=== PATIENT | female | born 1985 | race Caucasian/White ===

== ENCOUNTER 2021-01-13 06:27 | Emergency (ER) | payer OTHER, SELFPAY ==
--- NOTE | ~2021-01-13 | US_ITS ---
EXAMINATION: US pelvic complete w TV DATE: 01/13/2021 07:59 INDICATION: Right-sided pelvic pain TECHNIQUE: Multiple transabdominal and endovaginal sonographic images of the pelvis were obtained. COMPARISON: None. FINDINGS: The uterus measures 7.7 x 4.4 x 4.3 cm. The endometrial complex measures 8 mm. The right ov sanna measures 2.0 x 2.0 x 1.9 cm. The left ovary measures 2.6 x 2.3 x 1.6 cm. There is normal vascular flow in the ovaries. There is no free fluid in the pelvis. IMPRESSION: 1. No sonographic correlate for the patient's symptoms. Reviewed, dictated and finalized at location A.
--- NOTE | ~2021-01-13 | CT_ITS ---
EXAMINATION: CT abdomen pelvis w con INDICATION: Right flank pain and vomiting, history of lymphoma TECHNIQUE: Computed tomographic images of the abdomen and pelvis were obtained after the administrati on of 100 cc of Omnipaque 350 intravenous contrast. The dose-length product (DLP) was 235.32 mGy-cm. Automated exposure control and iterative reconstruction technique were employed. COMPARISON: CT from today and 01/18/2017 FINDINGS: The lung bases are clear. The heart size is normal. Cysts and hemangiomas of the liver dennis ure up to 1.7 cm. The spleen, pancreas, gallbladder, and adrenal glands are unremarkable. The left ki dney is unremarkable. Again noted is enlargement of the right kidney with surrounding right perinephr ic fat stranding. There is urothelial enhancement of the kidney and proximal ureter. No pathologicall y enlarged abdominal or pelvic lymph nodes are identified. There is no free intraperitoneal gas or ev idence of bowel obstruction. IMPRESSION: 1. Mild enlargement of the right kidney with right perinephric fat stranding and urothelial enhanceme nt. Findings remain concerning for urinary tract infection. Lymphoma would be considered less likely even in consideration of patient history. Reviewed, dictated and finalized at location A. IMPRESSION: 1. Mild enlargement of the right kidney with right perinephric fat stranding an d urothelial enhancement. Findings remain concerning for urinary tract infectio n. Lymphoma would be considered less likely even in consideration of patient hi story.
--- NOTE | ~2021-01-13 | CT_ITS ---
EXAMINATION: CT abdomen pelvis wo con DATE: 01/13/2021 09:05 INDICATION: Right flank pain TECHNIQUE: Computed tomography (CT) of the abdomen and pelvis was performed without intravenous contr ast. The dose-length product (DLP) was 236.52 mGy-cm. Automated exposure control and iterative recons truction technique were employed. COMPARISON: 01/18/2017 FINDINGS: The lung bases are clear. The heart size is normal. Hypoattenuating lesions of the liver me asuring up to 1.5 cm have been previously demonstrated to reflect cysts and hemangiomas. The spleen, pancreas, gallbladder, and adrenal glands are normal. The left kidney is unremarkable. There is enlar gement of the right kidney with surrounding right perinephric fat stranding. No urolithiasis is ident ified. No pathologically enlarged abdominal or pelvic lymph nodes are identified. There is no free in traperitoneal gas or evidence of bowel obstruction. IMPRESSION: 1. Enlargement of the right kidney with surrounding perinephric fat stranding suggestive of pyeloneph ritis. No urolithiasis identified. Reviewed, dictated and finalized at location A. IMPRESSION: 1. Enlargement of the right kidney with surrounding perinephric fat stranding s uggestive of pyelonephritis. No urolithiasis identified.
--- NOTE | ~2021-01-13 | XR_ITS ---
EXAMINATION: XR abdomen/kub 1V INDICATION: Right flank pain TECHNIQUE: Supine views of the abdomen were obtained on 2 radiographs. COMPARISON: CT from today FINDINGS: There are phleboliths of the left pelvis. No urolithiasis is identified. The bowel gas terry jose is normal. The visualized lung bases are clear. IMPRESSION: 1. No urolithiasis identified. Reviewed, dictated and finalized at location A.
[2021-01-13 06:30] VITALS: BP 147/102; PULSE 121; RESP 28; TEMP 36.6; O2SAT 100
[2021-01-13 07:19] LABS: Basophils Percent Auto 0.4 % (0.2-1.2); Eosinophils Absolute Auto 0.2 K/mm3 (0-0.3); Eosinophils Percent Auto 1.9 % (0-4.4); Hemoglobin 14.2 g/dL (12.0-15.0); Immature Granulocyte Absolute 0.06 K/mm3 (0.00-0.031); Immature Granulocyte Percent A 0.6 % (0-0.5); Lymphocytes Absolute Auto 2.25 K/mm3 (0.9-3.2); Lymphocytes Percent Auto 22.8 % (18.3-44.2); Mean Corpuscular HGB Conc 32.3 g/dl (32-36); Mean Corpuscular Hemoglobin 30.3 pg (26-34); Mean Platelet Volume 10.1 fl (7.4-10.4); Monocytes Absolute Auto 0.7 K/mm3 (0.1-0.6); Monocytes Percent Auto 7.3 % (2.6-8.5); Neutrophils Absolute Auto 6.6 K/mm3 (1.3-6.7); Platelet Count Result 217 k/mm3 (150-375); Red Blood Count 4.68 M/mm3 (4.2-5.4); Red Cell Distribution Width 11.9 % (11.5-14.5); White Blood Count 9.9 K/mm3 (4.5-10.0)
[2021-01-13] MEDS: ONDANSETRON INJ 4 MG/2 ML VIAL IV PUSH (07:20)
--- NOTE | 2021-01-13 07:20 | ED.ABDPAIN ---
HPI - Abdominal Pain General Chief Complaint: Abdominal Pain Stated Complaint: right flank pain/right abd pain Time Seen by Provider: 01/13/21 07:01 Source: patient, RN notes reviewed and old records reviewed Mode of arrival: ambulatory Limitations: no limitations History of Present Illness HPI narrative: This is a 35 year old female with history of lymphoma who presents for evaluation of right flank pain. She states she was awaken this morning at 4 am with right lower back pain that radiates to her right lower abdomen. Her pain has been constant , and it is associated with nausea and vomiting. She denies fever, chills, urinary complaints or vaginal bleeding. She has not been able to take anything for pain. Her pain is worse with standing straight. She is due to start her menstrual cycle today. She reports history ovarian cyst but she states this pain is much worse. Related Data Allergies Allergy/AdvReac Type Severity Reaction Status Date / Time azithromycin Allergy Unknown Skin Verified 11/12/17 13:13 irritation Macrolide Antibiotics Allergy Unknown Verified 05/20/18 13:37 Review of Systems Review of Systems: All systems reviewed & are unremarkable except as noted in HPI and below PMFSH Past Medical History Medical History (Updated 01/13/21 @ 12:40 by Evy Montoya MD) Non-Hodgkin lymphoma Ovarian cyst Social History Social History Smoking status: Never smoker Second hand tobacco smoke exposure: No Alcohol intake: current Exam Const: General: alert Orientation/consciousness: patient oriented x3 Other: in position moaning in pain Eyes: EOM: EOMs intact bilaterally Resp: Effort & Inspection: normal respiratory effort and no retractions Auscultation: clear to auscultation bilaterally Cardio: Rate: regular rate Rhythm: regular rhythm Heart sounds: no murmurs GI: GI Palp: Yes Soft to palpation, Yes Tenderness to palpation present (GI) (right lower abdomen), No Guarding due to palpation present (GI) and No Rigid due to palpation Auscultation: normal bowel sounds : General: Yes no CVA tenderness Neuro: General: patient oriented x3, moves all extremities and CN's II-XI intact bilaterally Psych: Mental Status: mental status grossly normal Affect: normal affect Course Reevaluation(s) Reevaluation #1: I spoke with radiologist , Dr. Manzano, about CT . He agrees it's reasonable to perform CT with IV contrast to evaluated enlarged kidney given that no infection in urine. I have spoken with patient and she is agreeable to repeat CT Date: 01/13/21 Time: 10:32 Reevaluation #2: I discussed evaluation and discharge disposition and treatment. She will be given dose of antibiotics and she is to follow up with PCP Date: 01/13/21 Time: 12:38 Vital Signs Vital signs: Vital Signs Temperature 97.9 F 01/13/21 06:30 Pulse Rate 121 H 01/13/21 06:30 Respiratory Rate 28 H 01/13/21 06:30 Blood Pressure 147/102 H 01/13/21 06:30 Pulse Oximetry 100 01/13/21 06:30 Temperature 97.9 F 01/13/21 06:30 Pulse Rate 72 01/13/21 13:04 Respiratory Rate 16 01/13/21 13:04 Blood Pressure 118/77 01/13/21 13:04 Pulse Oximetry 100 01/13/21 13:04 MDM - Abdominal Pain Medical Records Attestation: I reviewed the patient's medical records. Lab Data Attestation: I reviewed the patient's lab results. Result diagrams: 01/13/21 06:56 01/13/21 08:00 Labs: Lab Results 01/13/21 01/13/21 01/13/21 Range/Units 06:56 08:00 08:00 WBC 9.9 (4.5-10.0) K/mm3 RBC 4.68 (4.2-5.4) M/mm3 Hgb 14.2 (12.0-15.0) g/dL Hct 44.0 (37.0-47.0) % MCV 94.0 (80-100) fl MCH 30.3 (26-34) pg MCHC 32.3 (32-36) g/dl RDW 11.9 (11.5-14.5) % Plt Count 217 (150-375) k/mm3 MPV 10.1 (7.4-10.4) fl Immature Gran % (Auto) 0.6 H (0-0.5) % Neut % (Auto) 67.0 (45.5-73.1) % Lymph % (Auto) 22.8 (18.3-44.2) % Mitchell
[2021-01-13] MEDS: HYDROmorphone HCL INJ (*CRX) 1 MG/ML SYR IV PUSH (07:21)
[2021-01-13] MEDS: SODIUM CHLORIDE 0.9% IV 1,000 ML 999 ML IV CONT (07:22)
[2021-01-13 08:16] LABS: Add Urine Microscopic? YES; Appearance Urine Clear (Clear); Bacteria Urine Trace /hpf; Bilirubin Urine Negative (Negative); Blood Urine 2+ (Negative); Color Urine Straw (Yellow); Glucose Urine UA Negative (Negative); Ketones Urine Trace mg/dL (Negative); Leukocyte Esterase Ur Negative LEU/UL (Negative); Mucus Urine Rare /lpf; Nitrate Urine Negative (Negative); Protein Urine Negative (Negative); RBC Urine 21-50 /hpf (0-2); Specific Grav Ur 1.015 (1.001-1.035); Squamous Epithelial Cell Urine Occasional /hpf (Few); Urobilinogen Urine Negative mg/dL (<2.0); WBC Urine 0-3 /hpf
[2021-01-13 08:18] LABS: Alanine Aminotransferase 13 U/L (4-35); Alkaline Phosphatase 59 U/L (38-126); Anion Gap 8 mmol/L (8-16); Aspartate Amino Transferase 23 U/L (14-36); Bilirubin,Total 0.5 mg/dL (0.2-1.3); Blood Urea Nitrogen 14 mg/dL (7-17); Calcium 8.6 mg/dL (8.4-10.2); Carbon Dioxide 22 mmol/L (22-30); Chloride 106 mmol/L (98-107); Estimated CRCL calculation 66 ml/min; Estimated Glomerular Filt Rate > 60; Glucose 103 mg/dL (65-110); Lipase 77 U/L (23-300); Potassium 3.4 mmol/L (3.4-5.0); Sodium 136 mmol/L (137-145)
[2021-01-13 09:44] VITALS: BP 121/67; PULSE 81; RESP 17; O2SAT 97
[2021-01-13 13:04] VITALS: BP 118/77; PULSE 72; RESP 16; O2SAT 100
== END 2021-01-13 13:06 | disposition home or self-care (01) ==
PROVIDERS: Emergency Medicine; Emergency Provider General Practice; PCP Family Medicine
DX: N12 Tubulo-interstitial nephritis, not specified as acute or chronic (principal); Z85.72 Personal history of non-Hodgkin lymphomas
CPT/HCPCS: 36415; 74018; 74176; 74177; 74178; 76830; 76856; 80053; 81001; 81025; 83690; 85025; 96361; 96374; 96375; 99284; J0696; J1170; J2405; J7030; Q9967

== ENCOUNTER 2022-02-27 09:41 | Emergency (ER) | payer OTHER, SELFPAY ==
--- NOTE | 2022-02-27 09:44 | ED.URI ---
HPI - URI/Sore Throat General Chief Complaint: Upper Respiratory Infection Stated Complaint: + covid/sore throat/earache Time Seen by Provider: 02/27/22 09:44 Source: patient and RN notes reviewed History of Present Illness HPI Narrative: Patient is a 37-year-old female who presents the urgent care with complaints of earache and sore throat. Patient states that she was symptomatic and tested positive on Friday for COVID after her has been positive since Friday. Patient has been taking Tylenol and ibuprofen. States that her symptoms have been mostly mild with the exception of the severe sore throat that is developed over the last couple days. Patient has not had any recent fevers, nausea or vomiting. Patient denies any cough or shortness of breath. Patient states her main concern is possible strep throat. No other acute complaints. No acute distress noted. Patient aware of the plan of care. Some parts of this dictation were generated by voice recognition software and may contain typographical and/or grammatical inaccuracies. Related Data Allergies Allergy/AdvReac Type Severity Reaction Status Date / Time azithromycin Allergy Unknown Skin Verified 01/22/22 09:20 irritation Macrolide Antibiotics Allergy Unknown Unknown Verified 01/22/22 09:20 Review of Systems Review of Systems: CONSTITUTIONAL: Denies fever, chills, or sweats. EYES: Denies visual changes, redness, or discharge. ENT: Reports bilateral otalgia and sore throat CARDIOVASCULAR: Denies chest pain, palpitations, or edema. RESPIRATORY: Denies cough or dyspnea. GASTROINTESTINAL: Denies abdominal pain, nausea, vomiting, or diarrhea. GENITOURINARY: Denies dysuria or hematuria. SKIN: Denies rash or itching. MUSCULOSKELETAL: Denies back pain, joint pain, or myalgia. NEUROLOGIC: Denies headache, numbness, or weakness. All other systems reviewed are negative, except as documented in HPI. 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 There is no relevant family history pertinent to the patient complaint. Exam Narrative: GENERAL: This is a well-nourished, well-developed patient, in no apparent distress. HEAD: normocephalic, atraumatic. EYES: PERRL. Sclera clear/white. Vision is grossly intact. EARS: External ears normal, auditory canals clear and without drainage, TMs normal without perforation. Hearing grossly intact. NOSE: External nose normal with no obvious nasal discharge, nares without redness, no rhinorrhea. THROAT: Mucous membranes moist. Mild erythema to the posterior pharynx with moderate postnasal drainage NECK: Neck supple, non-tender without lymphadenopathy CARDIOVASCULAR: Regular rate and rhythm without murmurs, gallops, or rubs. RESPIRATORY: Clear to auscultation. Breath sounds equal bilaterally. No wheezes, rales, or rhonchi. SKIN: warm, intact with no suspicious lesions or rash, good texture and turgor. NEURO: awake, alert, and oriented to person, place and time. Th
[2022-02-27 09:55] VITALS: BP 135/86; PULSE 99; RESP 16; TEMP 37.2; O2SAT 100
== END 2022-02-27 10:29 | disposition home or self-care (01) ==
PROVIDERS: Emergency Provider Nurse Practitioner Family; PCP Family Medicine
DX: U07.1 COVID-19 (principal); Z79.82 Long term (current) use of aspirin; Z85.72 Personal history of non-Hodgkin lymphomas; Z92.21 Personal history of antineoplastic chemotherapy
CPT/HCPCS: 87081; 87880; 99213; G0463

== ENCOUNTER 2025-05-06 00:40 | Day surgery (SDC) | payer OTHER, SELFPAY ==
--- NOTE | 2025-05-04 16:20 | SUR.PREOP ---
[facility] has started construction of its new state of the art ER which will open Spring 2026. With this, we anticipate parking may be a challenge for some our surgical patients and families. Parking spaces are limited but are available for all Surgical, obstetrics, and ER patients sharing this lot. If you arrive and find you are having a hard time finding a parking space, please note that we understand the challenges, please drive around the hospital and park near Hospital Entrance 1. When you enter this entrance, you can ask a volunteer to direct or take you back to the surgical waiting area to check in. We appreciate everyone?s understanding of these expected challenges while we build for your future. Report to the Outpatient Waiting Room, entrance under the green pavilion located off [address], at time _6AM_ on date _05/06/25_. Planned Procedure Time: _730AM_.? Time changes happen often and if your time is changed the preop area will call you the afternoon before. - You and your visitor will be asked to self-screen and do not enter if you have any COVID symptoms. Please call surgeon if you need to reschedule. - A mask is optional within the hospital at this time. Patients may have clear liquids (water, carbonated beverages, clear teas, apple juice) until 3 hours prior to surgery with a maximum of 20 ounces. - No food from midnight until time of surgery and no smoking, or chewing tobacco (or any form of nicotine). No chewing gum, candy or mints. Take only the following medications with a SIP of water on the morning of surgery: _none__ DO NOT STOP ANY OF YOUR OTHER PRESCRIPTION MEDICATIONS PRIOR TO SURGERY EXCEPT THE FOLLOWING Hold all vitamins and supplements for 3 days per anesthesiologist. Medications to discontinue per physician _follow up with surgeon regarding aspirin regimen_ Date to take last dose__n/a_ Please no make-up, nail kosovan, hairspray, perfume, deodorant, or body powder the day of surgery.? No jewelry (including any body piercings) or valuables the day of surgery, leave them at home.? Please take a shower or bath the night before, or the morning of, surgery with an antibacterial soap.? Wear comfortable, loose fitting clothing.? - Jewelry must be removed prior to entering the operating room.? Rings and piercings that are not removed may be cut off. - The hospital will not accept responsibility for valuables.? - Please leave all valuables, including medications, at home the day of surgery. If you are going home after surgery, a licensed otr refrigerated cdl truck driver must drive you home.? - NO public transportation without another adult if you receive anesthesia. - We recommend that an adult stay with you for 24 hours following discharge. - We also recommend that you do not drive, make important decision, drink alcoholic beverages, or take any drugs that were not prescribed by your health care provider for at least 24 hours after your discharge time. Follow any additional instructions given to you from your surgeon. Telephone instructions given to __Jelly____and asked if any additional questions and then verbalized understanding. Patient advised to call surgeon office or pre surgery nurse liaison [phone] if any additional questions.
[2025-05-04 16:37] VITALS: BMI 18.9
--- NOTE | 2025-05-05 16:36 | P.HP_ITS ---
H&P: HPI History of Present Illness Date/Time: 05/05/25 16:36 Chief Complaint: missed Narrative: 40-year-old female who presents for suction D&C for management of spontaneous missed . Ultrasound last week showed the gestational sac size was small compared to last menstrual cycle. As she was asymptomatic they opted for repeat scan which was performed a week later. Ultrasound showed empty ge stational sac with no pole or yolk sac, no interval change. 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 Non-Hodgkin lymphoma 2014 chemotherapy Ovarian cyst Surgical History Surgical History History of biopsy (12/21/12) neck biopsy Social History Social History (Updated 04/11/25 @ 15:18 by OUSMANE Camarena) Smoking status: Never smoker Second hand tobacco smoke exposure: No Alcohol intake: current Drinks per week: 1 Substance use: never Substance use type: does not use Do You Feel Safe in your Home?: Yes Lack of Transportation: No Lack of Food: Never True Current Housing: Decline to Answer Concerned About Future Housing: Decline to Answer Difficulty Paying Gas/Electric Bills: Decline to Answer Difficulty Paying for Meds: Decline to Answer Currently Unemployed: Decline to Answer Education: Decline to Answer Difficulty w/ Childcare or Family Care: Decline to Answer Living arrangements: with family Additional living arrangements comments: Occupation/Education: occupation 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 [employer] Gender identity (if verbalized by the patient): Female Sexual Orientation (if Verbalized by the Patient): Straight or Heterosexual Spiritual care concerns: No Meds Home Medications and Allergies Home Medications ?Medication ?Instructions ?Recorded ?Confirmed ?Type aspirin 81 mg tablet,delayed 81 mg PO DAILY 02/25/23 1 07/04/24 History release (Adult Low Dose Aspirin) progesterone micronized 200 mg 200 mg PO QHS 30 days # 30 caps 10/13/25 11/05/25 Rx capsule (Prometrium) Allergies Allergy/AdvReac Type Severity Reaction Status Date / Time azithromycin Allergy Unknown Skin Verified 05/04/25 16:22 irritation Exam Const: General: comfortable and no acute distress Resp: Effort & Inspection: normal respiratory effort Auscultation: clear to auscultation bilaterally Cardio: Rate: regular rate Rhythm: regular rhythm GI: Inspection: non-distended GI Palp: Yes Soft to palpation, No Tenderness to palpation present (GI) and No Guarding due to palpation present (GI) Auscultation: normal bowel sounds : External Female Exam: normal external appearance Speculum Exam - Vagina: normal appearance of the vagina Speculum Exam - Cervix: normal appearance of the cervix, Cervical os closed, Abnormal cervical discharge present and nontender Bimanual exam- vagina & uterus: normal bimanual exam, No Cervical tenderness present and non-tender Bimanual Exam- Adnexa, other: normal adnexae OB/external & speculum: no bleeding Skin: General skin exam: normal color Neuro: General: gait normal Speech: normal speech Extrem: General: normal to inspection Psych: Mental Status: mental status grossly normal Affect: normal affect Assessment and Plan Assessment and plan (1) Missed : Code(s): O02.1 - Missed Status: Acute Assessment and Plan: 40-year-old female who presents for suction D&C for management of missed Patient was diagnosed with a spontaneous missed on pelvic ultrasound Management options were reviewed Patient elects for surgical management via D&C Risks, benefits, alternatives discussed Patient consented for above procedure (2) History of DVT (deep vein thrombosis): Code(s): Z86.718 - Personal history of other venous thrombosis and embolism Status: Acute Assessment and Plan: h/o DVT will plan for SCDs and early ambulation
--- OUTSIDE RECORDS SUMMARY | 2025-05-06 00:45 | XMS_ITS | Encounter Summary ---
Author Organization [facility] Address [address] [place] [address] Care Team Providers Care Building Service Worker Name Role Phone Heavenly Ashley MD Primary Care Provider [phone] Encounter Details Date Type Department Care Team (Late st Contact Info) Description 06/02/2020 Lab Requisition [facility] [address] [facility] [place] [address] Felicitas Avila MD [address] [facility] [address] [place] [address] Social History Tobacco Use Types Packs/Day Years Used Date Smoking Tobacco: Never Smokeless Tobacco: Never Comments No Sex and Gender Information Value Date Recorded Sex Assigned at Not on file Legal Sex Female 7:14 AM CDT Gender Identity Not on file Sexual Orientation Not on file documented as of this encounter Plan of Treatment Not on file documented as of this encounter Procedures Procedure Name Priority Date/Time Associated Diagnosis Comments DERMATOPATHOLOGY Routine 06/01/2020 12:0 0 AM EXERCISER documented in this encounter Results * DERMATOPATHOLOGY (06/01/2020 12:00 AM EXERCISER) Case Report Dermatopathology Report Case: [id number] Authorizing Provider: Felicitas Avila MD Collected: 06/01/2020 12:00 AM Ordering Location: [facility] Received: 06/02/2020 08:31 AM Pathologist: Lori Saini MD Specimen: Skin, central back 0 1:42 PM [facility] Final Diagnosis Specimen A. SKIN, central back: LENTIGINOUS MELANOCYTIC NEVUS, COMPOUND TYPE, IRRITATED (COMPOUND MELANOCYTIC NEVUS WITH ARCHITECTURAL DISORDER) (D22.5) 0 1:42 PM [facility] at 1342 EXERCISER Clinical History Nevus R/O atypia, irregular color. 0 1:42 PM [facility] Gross Description Specimen A: Received is one formalin filled container labeled with the patient's name and designated central back. The specimen consists of a shave measuring [id number]. Jar 0. 0 1:42 PM [facility] Microscopic Description Specimen A. SKIN, central back: This is a compound nevus. There is melanin pigment in the stratum corneum. There is architectural disorder characterized by a lentiginous proliferation of melanocytes between irregular nevus nests of cells along the dermal epidermal junction. There is underlying fibroplasia of the papillary dermis. The intradermal component is bland in appearance and matures with depth. (Compound Sunny's Nevus or Compound Dysplastic Nevus) 0 1:42 PM [facility] Disclaimer An external and internal positive and negative controls are appropriate for the histochemical, immunohistochemical and immunofluorescence stain(s) in this case (if any), except where stated explicitly. The performance characteristics of the stain(s) cited in this report were developed and its performance characteristic determined by the Dermatopathology Laboratory at [facility], directed by Dr. Mariam Jacobs. These tests need not be, and therefore are not, approved by the [place] Food and Drug Administration. The tests are used for clinical purposes. Billing Codes Specimen Charges Stain Charges 90011 1 0 1:42 PM [facility] Embedded Images 0 1:42 PM [facility] Pathology/Cytolog y TISSUE SPECIMEN FROM SKIN / Unknown 06/01/2020 06/02/2020 8:31 AM EXERCISER Felicitas Avila MD LAB - PATHOLOGY/CYTOLOGY OR DERABLES Final Result DERMATOPATHOLOGY LABORATORY [facility] - Department of Dermatology [facility] Special[facility] [facility], 3rd Floor [address] [phone] documented in this encounter Visit Diagnoses Not on filedocumented in this encounter Care Teams Building Service Worker Relationship Specialty Start Date End Date Heavenly Ashley MD PCP - General Family Medicine 01/18/19 documented as of this encounter
--- OUTSIDE RECORDS SUMMARY | 2025-05-06 00:45 | XMS_ITS | Clinical Summary ---
Author Organization [facility] Address [address] [place] [address] Care Team Providers Care Telephone Collector Name Role Phone Patricia German NP Primary Care Provider [phone]- [phone] Allergies Active Allergy Reactions Criticality Noted Date Comments Azithromycin Rash Medium Medications aspirin (ASPIR-LOW) 81 mg tablet Take 1 tablet (81 mg total) by mouth daily Active Active Problems Problem Noted Date Diagnosed Date History of DVT (deep vein thrombosis) 11/12/2024 Assessment & Plan (11/12/2024 11:40 AM CDT): History of B-cell lymphoma 11/12/2024 Overview (11/12/2024): Diagnosis: DLBCL Histologic Type: CD20+, 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 Stage at diagnosis: IIB. Initial sites of disease: masoud SC, mediastinal, hilar, cardiophrenic adenopathy. IPI: 1 (LDH) Chemotherapy 01/14/2014-04/28/2014 R-CHOP + Ibrutinib/placebo x 6 , [place] [facility] after C2, Florian-Deauville = 3, CR after C3) In remission, cleared from oncology management in 2019. Assessment & Plan (11/12/2024 11:40 AM CDT): Resolved Problems Problem Noted Date Diagnosed Date Resolved Date Rash 05/07/2014 11/12/2024 Deep vein thrombosis (DVT) 03/28/2014 0 11/12/2024 Malignant lymphoma, large cell, diffuse 12/29/2013 11/12/2024 Encounters Date Type Department Care Team Description 04/12/2025 4:40 [place] [address] from Last 3 Months Immunizations Immunization Administration Dates Next Due Influenza, Quadrivalent, Erendira l Culture-based MDCK, Antibiotic Free, Intramuscular 04/08/2019 Influenza, Quadrivalent, Spl it, Intramuscular 03/28/2016 Influenza, Quadrivalent, Spl it, Preservative Free, Intramuscular 03/27/2023,04/04/2022,04/19/2021,03/23,04/02/2018,04/03/2017 Influenza, Trivalent, IM (MDV) 03/31/2013 Influenza, Trivalent, Preser vative Free, Intramuscular 04/01/2024 Medical History Medical History Date Comments Non Hodgkin's lymphoma (HCC) 201 4 History of chicken pox Rash 05/07/2014 Deep vein thrombosis (DVT) (HCC) 03/28/2014 Malignant lymphoma, large cell, diffuse (HCC) Family History Medical History Relation Name Comments No Known Problems Father Breast cancer Father's Sister Stroke Maternal Grandfather No Known Problems Mother Stroke Paternal Grandfather Relation Name Status Comments Father Alive Father's Sister Maternal Grandfather Mother Alive Paternal Grandfather Social History Tobacco Use Types Packs/Day Years Used Date Smoking Tobacco: Never Passive Smoke Exposure: Never Smokeless Tobacco: Never Tobacco Cessation:Counseling Given: Not Answered AUDIT-C Answer Date Recorded Q1: How often do you have a drink containing alc ohol? Monthly or less 11/12/2024 Q2: How many drinks containi ng alcohol do you have on a typical day when you are drinking? 1 or 2 11/12/2024 Q3: How often do you have si x or more drinks on one occasion? 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 Gender Identity Not on file Sexual Orientation Not on file Obstetrics History Para Term AB IAB SAB Ectopic Multiple Livin g Live Births 0 0 0 Last Filed Vital Signs Vital Sign Reading Time Taken Comments Blood Pressure 110/80 11/12/2024 9:18 AM CDT Pulse 83 11/12/2024 9:18 AM CDT Temperature 36.8 C (98.3 F) 11/12/2024 9:18 AM CDT Respiratory Rate 16 11/12/2024 9:18 AM CDT Oxygen Saturation 97% 11/12/2024 9:18 AM CDT Inhaled Oxygen Concentration - - Weight 58.5 kg (129 lb) 11/12/2024 9:18 AM CDT Height 175.3 cm (5' 9) 11/12/2024 9:18 AM CDT Body Mass Index 19.05 11/12/2024 9:18 AM CDT Plan of Treatment Health Maintenance Due Date Last Done Comments Cervical Cancer Screening 1985 DTaP/Tdap/Td Vaccine (1 - Tdap) 02/26/1995 HPV Vaccines (1 - 3-dose SCDM series) 02/26/2011 Covid-19 Vaccine (3 - season) 2025 09/19/2020, 08/29/2020 Influenza Vaccine (#1) 2025 , 03/27/2023, 04/04/2022, Additional history exists Breast Cancer Screening-Mammogram 04/05/2025 04/05/2024 Pneumococcal vaccine <65 (1 of 2 - PCV) 10/28/2025 Postponed from 02/26/2003 (Patient declined, but will receive in the future) Depression Screening 11/12/2025 11/12/2024 Regular Well Visit/Exam 18-64 11/12/2025 11/12/2024 Zoster Vaccine (1 of 2) 11/12/2025 Post poned from 02/26/2003 (Patient declined, but will receive in the future) Hepatitis C Screening Completed 12/30/2013 Hepatitis B Screening Discontinued Procedures Procedure Name Priority Date/Time Associated Diagnosis Comments ANTIBODY SCREEN Routine 04/12/2025 5:04 PM CDT DIFFERENTIAL AUTO Routine 04/12/2025 5:0 4 PM CDT CBC WITH AUTO DIFFERENTIAL Routine 04/12/2025 5:04 PM CDT ABO/RH Routine 04/12/2025 5:04 PM CDT HCG, BLOOD, QUANTITATIVE Routine 04/12/2025 5:04 PM CDT HEPATITIS B SURFACE ANTIGEN Routine 04/12/2025 5:04 PM CDT CMV, IGG Routine 04/12/2025 5:04 PM CDT RPR Routine 04/12/2025 5:04 PM CDT VARICELLA ZOSTER ANTIBODY, IGG Routine 04/12/2025 5:04 PM CDT RUBELLA IGG Routine 04/12/2025 5:04 PM CDT HIV 1/2 ANTIBODY PLUS P24 ANTIGEN Routine 04/12/2025 5:04 PM CDT URINE CULTURE Routine 04/12/2025 5:04 PM CDT PARVOVIRUS B19 ANTIBODY, IGG AND IGM Routine 04/12/2025 5:04 PM CDT SCREENING MAMMOGRAM BILATERAL W SHUN Schedule Routine, Read Routine (OP Routine) 04/05/2024 9:31 AM CDT Screening mammogram, encounter for SERUM HEPATITIS C AB Routine 12/30/2013 8:03 AM CDT from Last 3 Months or Most Recently Relevant to Health Maintenance Results * (ABNORMAL) Differential, auto (04/12/2025 5:04 PM CDT) Neutrophil abs 7.68(H) 1.50 - 6.50 K/cumm Imm gran abs 0.03 0.00 - 0.10 K/cumm [facility] Lymphocyte abs 2.37 0.80 - 3.30 K/cumm [facility] Monocyte abs 0.70 0.20 - 0.80 K/cumm [facility] Eosinophil abs 0.18 0.00 - 0.50 K/cumm [facility] Basophil abs 0.04 0.00 - 0.10 K/cumm [facility] Neutrophil pct 69.8 % [facility] Comment: Interpretive Data Percent cell count reference ranges are not reported, since discordance with absolute values may lead to misinterpretation of CBC data. Current Interpretive Data was last revised on 2017. Imm gran pct 0.3 % [facility] Comment: Interpretive Data Percent cell count reference ranges are not reported, since discordance with absolute values may lead to misinterpretation of CBC data. Current Interpretive Data was last revised on 2017. Lymphocyte pct 21.5 % [facility] Comment: Interpretive Data Percent cell count reference ranges are not reported, since discordance with absolute values may lead to misinterpretation of CBC data. Current Interpretive Data was last revised on 2017. Monocyte pct 6.4 % [facility] Comment: Interpretive Data Percent cell count reference ranges are not reported, since discordance with absolute values may lead to misinterpretation of CBC data. Current Interpretive Data was last revised on 2017. Eosinophil pct 1.6 % [facility] Comment: Interpretive Data Percent cell count reference ranges are not reported, since discordance with absolute values may lead to misinterpretation of CBC data. Current Interpretive Data was last revised on 2017. Basophil pct 0.4 % [facility] Comment: Interpretive Data Percent cell count reference ranges are not reported, since discordance with absolute values may lead to misinterpretation of CBC data. Current Interpretive Data was last revised on 2017. Blood 04/12/2025 5:04 PM CDT 04/12/2025 7:03 PM CDT us Sourav Taylor MD LAB BLOOD ORDERABLES Final Result Performing Organization Address [facility] Co de Phone Number XAVIER [address] [address] * HIV 1/2 Antibody plus p24 Antigen Blood (04/12/2025 5:04 PM CDT) [facility] [address] [facility] HIV 1/2 ab + p24 ag Nonreactive Nonreactive Comment:Nonreactive for HIV- 1 antigen and HIV-1/HIV-2 antibodies. No laboratory evidence of HIV infection. If acute HIV infection is suspected, consider testing for HIV-1 RNA. Current interpretive data was last revised on 22. Blood 04/12/2025 5:04 PM CDT 04/12/2025 7:03 PM CDT us Sourav Taylor MD LAB MICROBIOLOGY - GENERAL ORDERABLES Final Result Performing Organization Address [facility] de Phone Number [address] [address] * CMV, IgG Blood (04/12/2025 5:04 PM CDT) [facility] [address] CMV IgG Negative Negative Comment: Interpretive Data Negative - Individuals with negative CMV IgG results are presumed to not have had prior exposure or infection with CMV and are, therefore, considered susceptible to primary infection. Equivocal - Equivocal results may occur during acute infection or may be due to nonspecific binding reactions. Submit an additional sample for testing if clinically indicated. Positive - Indicates presence of detectable CMV IgG antibody. Results indicate past or recent CMV infection. Testing performed by: [facility], [address] [facility], [place]., [address] Blood 04/12/2025 5:04 PM CDT 04/12/2025 9:07 PM CDT us Sourav Taylor MD LAB MICROBIOLOGY - GENERAL ORDERABLES Final Result Performing Organization Address [facility] Co de Phone Number CERNER [facility] [address] [place] [address] * (ABNORMAL) CBC with auto differential (04/12/2025 5:04 PM CDT) [facility] [address] WBC 11.00(H) 3.80 - 9.90 K/cumm Hgb 13.4 11.9 - 15.5 g/dL [facility] Hct 40.7 35.6 - 45.5 % [facility] Plt 280 150 - 400 K/cumm [facility] MPV 10.0 9.1 - 12.3 fL [facility] RBC 4.40 3.90 - 5.20 M/cumm [facility] MCV 92.5 81.3 - 96.4 fL [facility] MCH 30.5 27.1 - 33.3 pg [facility] MCHC 32.9 32.3 - 35.7 g/dL [facility] RDW CV 12.1 11.1 - 14.9 % [facility] RDW SD 41.3 35.7 - 48.1 fL [facility] NRBC abs 0.00 0.00 - 0.01 K/cumm [facility] Blood 04/12/2025 5:04 PM CDT 04/12/2025 7:03 PM CDT Sourav Taylor MD LAB BLOOD ORDERABLES Final Result [facility] [address] [place] [address] * (ABNORMAL) Parvovirus B19 antibody, IgG and IgM Blood (04/12/2025 5:04 PM CDT) [facility] [address] [facility] Parvovirus IgG Positive(A) Negative [facility] Lab Parvovirus IgM Negative Negative [facility] Parvovirus B19 Interpretation See Footnote [facility] Comment: RESULT: Results suggest past infection. ADDITIONAL INFORMATION This test has been modified from the bow maker's instructions. Its performance characteristics were determined by [facility] in a manner consistent with CLIA requirements. This test has not been cleared or approved by the U.S. Food and Drug Administration. Test Performed by: [facility] [address] [place] [address] Color Television Console Monitor: Bruce Adame Ph.D.; CLIA# [id number] Blood 04/12/2025 5:04 PM CDT 04/12/2025 6:59 PM CDT Narrative [facility] - 04/15/2025 12:48 PM CDT sent to lab; 04/13/2025 15:16:29 CDT [id number] us Sourav Taylor MD LAB MICROBIOLOGY - GENERAL ORDERABLES Final Result Performing Organization Address City/[facility]/ZIP Co de Phone Number [address] [place] [address] [facility] * ABO/Rh (04/12/2025 5:04 PM CDT) ABO/Rh O Positive Blood 04/12/2025 5:04 PM CDT 04/12/2025 7:13 PM CDT us Sourav Taylor MD LAB BLOOD BANK TEST ORDERAB LES Final Result Performing Organization Address [facility] Co de Phone Number [address] [place] [address] * (ABNORMAL) Rubella IgG antibody Blood (04/12/2025 5:04 PM CDT) Rubella IgG Nonreactiv e(A) Reactive Blood 04/12/2025 5:04 PM CDT 04/12/2025 6:59 PM CDT us Sourav Taylor MD LAB MICROBIOLOGY - GENERAL ORDERABLES Final Result Performing Organization Address City/[facility]/ZIP Co de Phone Number [address] [place] [address] * RPR Blood (04/12/2025 5:04 PM CDT) Pathologist [facility] RPR Nonreactive Nonreactive Comment:Testing performed by : [facility], [address] [place] [address] Blood 04/12/2025 5:04 PM CDT 04/12/2025 9:07 PM CDT Sourav Taylor MD LAB MICROBIOLOGY - GENERAL ORDERABLES Final Result [address] [place] [address] * Hepatitis B Surface Antigen Blood (04/12/2025 5:04 PM CDT) [facility] HepBsAg Nonreactive Nonreactive Blood 04/12/2025 5:04 PM CDT 04/12/2025 6:59 PM CDT Sourav Taylor MD LAB MICROBIOLOGY - GENERAL ORDERABLES Final Result Performing Organization Address City/[facility]/ZIP Co de Phone Number [address] [employer] [place] [address] * Antibody screen (04/12/2025 5:04 PM CDT) Pathologist [facility] Rima, indirect, Gel Interpretation Negative ABSC Blood 04/12/2025 5:04 PM CDT 04/12/2025 7:13 PM CDT Sourav Taylor MD LAB BLOOD BANK TEST ORDERAB LES Final Result Performing Organization Address City/[facility]/ZIP Co de Phone Number [address] [place] [address] * Urine culture Urine, bladder (04/12/2025 5:04 PM CDT) Pathologist [facility] Report Final Report: Less than 100,000 colonies/mL (clinically insignificant growth based on current clinical standards) Comment:Testing performed by : [facility], [address] [place]., [address] Organism (CLINICALLY INSIGNIFICANT GROWTH [facility] Urine, bladder 04/12/2025 5: 04 PM CDT 04/12/2025 9:09 PM CDT Narrative [facility] - 04/14/2025 9:45 AM CDT Testing performed by [facility] Microbiology Laboratory ([phone]) Sourav Taylor MD LAB MICROBIOLOGY - GENERAL ORDERABLES Final Result Performing Organization Address City/[facility] Co de Phone Number [address] [place] [address] * (ABNORMAL) Varicella Zoster IgG antibody Blood (04/12/2025 5:04 PM CDT) [facility] VZV IgG Nonreacti ve(A) Reactive Comment: Non-reactive: No detectable antibody to Varicella-zoster virus. Such individuals are presumed to be uninfected and to be susceptible to primary infection. Testing performed by: [facility], [address] [place]., [address] Blood 04/12/2025 5:04 PM CDT 04/12/2025 9:07 PM CDT Sourav Taylor MD LAB MICROBIOLOGY - GENERAL ORDERABLES Final Result Performing Organization Address City/[facility] Co de Phone Number [address] [place] [address] * (ABNORMAL) hCG, blood, quantitative (04/12/2025 5:04 PM CDT) [facility] hCG, quant 64,343.0( H) 0.0 - 5.0 IUnits/L Comment: Interpretive Data Male: < 5 IU/L Non- premenopausal Female: <5 IU/L The Pia hCG Beta Quant assay procedure was used. Results from different manufacturers or methods may not be comparable. Serial testing should be performed using the same method. Interpretive Data was last revised on 2023 Blood 04/12/2025 5:04 PM CDT 04/12/2025 6:59 PM CDT Sourav Taylor MD LAB BLOOD ORDERABLES Final Result [facility] [address] [facility] [place] [address] * Screening Mammogram Bilateral W Shun (04/05/2024 9:31 AM CDT) Anatomical Region Laterality Modality Breast Bilateral Mammography Impressions 04/05/2024 9:47 AM CDT BI-RADS ATLAS category (overall): 1 - Negative There is no mammographic evidence of malignancy. A 1 year screening mammogram is recommended. The patient has been or will be contacted. We recommend annual screening mammography for women at average risk of breast cancer beginning at age 40, based on guidelines of the [place] [employer] (ACR Practice Parameter for the Performance of Screening and Diagnostic Mammography) and [place] [employer]. For women with and elevated risk of breast cancer, please refer to the ACR Practice Parameter for specific screening recommendations. The patient will be entered into a reminder system with a target due date of 1 year for her next screening exam. Narrative 04/05/2024 9:47 AM CDT Screening Mammogram Bilateral W Shun: 04/05/24 The study was acquired using full field digital technology and interpreted from soft copy. 2D digital mammographic views, as well as 3D digital tomosynthesis were performed in the CC and MLO projections. CLINICAL: Screening mammogram, encounter for. No relevant medical history has been documented for this patient. History of breast cancer in Father's Sister. COMPARISON: Baseline Screening Mammography. No prior mammography is available for comparison. BREAST TISSUE: The breasts are extremely dense, which lowers the sensitivity of mammography. FINDINGS: No suspicious masses, suspicious calcifications, or other suspicious findings are seen within either breast. us Self Screening Mammogram IMG MAMMO PROCEDURES Fi nal Result * Serum Hepatitis C ab (12/30/2013 8:03 AM CDT) HCV ab Negative NEG HISTORICAL RESULTS Serum 12/30/2013 8:03 AM CDT Narrative HISTORICAL RESULTS - 12/30/2013 9:52 AM CDT Interpretive Data If confirmation is required, call Laboratory Customer Service to request sample to be sent to [facility] for Hepatitis C Virus (HCV) RNA Detection and Quantitation by Real-Time Reverse Ballistics Professor-PCR (RT-PCR). Current interpretive data was last revised on 2011 us Leona Allen MD LAB BLOOD ORDERABLES Final Result HISTORICAL RESULTS from Last 3 Months or Most Recently Relevant to Health Maintenance Insurance [facility] CHOICE PLUS [facility] HMO/PPO Address: [address] [address] [place] [address] [facility] Care Teams Telephone Collector Relationship Specialty Start Date End Date Patricia German NP [address] [place] [address] PCP - General Internal Medicine 11/12/24
--- OUTSIDE RECORDS SUMMARY | 2025-05-06 00:45 | XMS_ITS ---
Author Organization [facility] Address [address] [place] [address] Care Team Providers Care Patient Admitting Representative Name Role Phone Patricia German NP Primary Care Provider +1- [phone] Active Problems Problem Noted Date Diagnosed Date [...] 6 , on Phase III DLBCL study, [facility] 2012-06-054 (ND after C2, Florian-Deauville = 3, CR after C3) In remission, cleared from oncology management in 2019. Assessment & Plan (11/12/2024 11:40 AM CDT): Current Treatment and Therapy Plans No current plan information found. Past Treatment and Therapy Plans No past plan information found. Lifetime Dose Tracking * Chemical Lifetime Dose Automatic Entry Manual Entr y DLP 757 mGycm 757 mGycm 0 mGycm Resolved Problems Problem Noted Date Diagnosed Date Resolved Date Rash 05/07/2014 11/12/2024 Deep vein thrombosis (DVT) 03/28/2014 0 11/12/2024 Malignant lymphoma, large cell, diffuse 12/29/2013 11/12/2024
[2025-05-06 06:41] LABS: Hematocrit 39.0 % (37.0-47.0); Hemoglobin 12.8 g/dL (12.0-15.0)
[2025-05-06 07:00] VITALS: BP 123/79; PULSE 78; RESP 16; TEMP 36.6; O2SAT 97
[2025-05-06] MEDS: ACETAMINOPHEN 500 MG TABLET 1000 MG PO (07:00)
[2025-05-06] MEDS: LACTATED RINGERS 1,000 ML 30 ML IV CONT (07:00)
[2025-05-06] MEDS: DOXYCYCLINE IV 100 MG in SODIUM CHLORIDE 0.9% IV 100 ML IVPB (07:00)
--- NOTE | 2025-05-06 07:16 | WPDHPUPDATE1 ---
History and Physical Update Update Date/Time: 05/06/25 07:16 History and Physical has been reviewed, including an updated exam of the patient. There are NO changes in the patient's condition. Risks, benefits, and alternatives have been discussed and questions answered. Patient agrees to proceed with procedure.
--- NOTE | 2025-05-06 07:25 | P.PNAN_ITS ---
Anes - Initial Pre Proc Eval Procedure: Operation Date: 05/06/25 07:30 Proposed Procedures p Suction Dilatation and Curettage - Jarrod Muro MD Date/Time: 05/06/25 07:25 Surgeon: Jarrod Muro MD Pre Op Diagnosis: missed AB Patient Data Age: 40 Gender: F Height: 1.75 m Weight: 57.5 kg Last Vital Signs Temp 36.6 C 05/06/25 07:00 Pulse 78 05/06/25 07:00 Resp 16 05/06/25 07:00 BP 123/79 05/06/25 07:00 Pulse Ox 97 05/06/25 07:00 O2 Del Method Room Air 05/06/25 07:00 Allergies Allergy/AdvReac Type Severity Reaction Status Date / Time azithromycin Allergy Unknown Skin Verified 05/06/25 07:26 irritation Home Medications ?Medication ?Instructions ?Recorded ?Confirmed ?Type aspirin 81 mg tablet,delayed 81 mg PO DAILY 02/25/23 1 07/04/24 History release (Adult Low Dose Aspirin) progesterone micronized 200 mg 200 mg PO QHS 30 days # 30 caps 04/11/25 05/04/25 Rx capsule (Prometrium) Laboratory Tests 05/06/25 06:28 Hgb 12.8 g/dL (12.0-15.0) Hct 39.0 % (37.0-47.0) Blood Type O Positive Antibody Screen Pending Screen Pending Baby's Blood Type Pending Baby's CAN Pending Doses of RhIg Required Pending Patient hx anesthesia problems: none Family hx anesthesia problems: none Results Review: All pre-operative results and documents have been reviewed as part of the pre- operative evaluation. [facility] Past Medical History Medical History Screening mammogram, encounter for History of needle biopsy (12/03/12) of the neck Hx of usp use of blood thinners 81mg aspirin daily Non-Hodgkin lymphoma 2014 chemotherapy Ovarian cyst Surgical History Surgical History History of biopsy (12/21/12) neck biopsy Social History Social History Smoking status: Never smoker Second hand tobacco smoke exposure: No Alcohol intake: current Drinks per week: 1 Substance use: never Substance use type: does not use Do You Feel Safe in your Home?: Yes Lack of Transportation: No Lack of Food: Never True Current Housing: Decline to Answer Concerned About Future Housing: Decline to Answer Difficulty Paying Gas/Electric Bills: Decline to Answer Difficulty Paying for Meds: Decline to Answer Currently Unemployed: Decline to Answer Education: Decline to Answer Difficulty w/ Childcare or Family Care: Decline to Answer Living arrangements: with family Additional living arrangements comments: Occupation/Education: occupation 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 [employer] Gender identity (if verbalized by the patient): Female Sexual Orientation (if Verbalized by the Patient): Straight or Heterosexual Spiritual care concerns: No Anes - Eval Final PreProcedure Day of Procedure 05/06/25 07:25 Patient weight: normal Heart: regular rate and rhythm Lungs: clear to auscultation Airway: Mallampati scale class 1 Neurological: alert and oriented Last oral intake: >/= 8 hours ASA classification: I Emergent: no Anesthetic plan: proceed Anesthesia type and monitoring: general GIVS and standard monitoring Results Review: All pre-operative results and documents have been reviewed as part of the pre- operative evaluation. Informed Consent: The patient's anesthetic plan and its attendant risks and benefits were discussed with the patient/family/POA. Questions were solicited and answers provided to the satisfaction of the patient/family/POA.
--- NOTE | 2025-05-06 07:48 | S_PTH ---
PATIENT: Jelly Bermudez LOC: [facility] U#:[id number] AGE/SX: 40/F ROOM: RE05/06/[address]: Jarrod Muro MD : 1985 BED: DIS: 05/06/2025 SPEC #: [id number] RECD: 05/06/25 09:43 STATUS: TERESO REQ #: [id number] CARTER: 05/06/25 07:[address]: Jarrod Muro DEPT: [facility] Surgical RECD BY: Staci Orellana ENTERED: 05/06/25 09:43 SP TYPE: Surgical OTHR DR: Patricia German Tissues: A - Uterine Contents Procedures: Hematoxylin and Eosin Stain Gross and Microscopic Level 4
--- NOTE | 2025-05-06 07:54 | W.PM.PROC2 ---
Procedure Note - Detailed Date of Procedure 05/06/25 Pre-op Diagnosis missed AB Post-op Diagnosis Same Procedure Performed Suction Dilation & curettage Surgeon Jarrod Muro MD Anesthesia General Indications spontaneous missed on pelvic US Findings intrauterine products of conception Description of Procedure The patient was taken to the operating room after a missed had been noted on on transvaginal ultrasound. The risks, benefits and alternatives of the procedure were reviewed with the patient and informed consent was obtained. The patient was taken to the OR and anesthesia was noted to be adequate. The patient was placed in the dorsolithotomy position. Pelvic exam was performed with findings noted above. The patient was prepped and draped in the usual sterile fashion. Sterile speculum was placed in the vagina and the cervix was grasped with a tenaculum. The cervix was dilated further to allow for passage of a 8 mm suction curette. The 8 mm suction curette was gently advanced to the fundus, suction was activated, and the tip was rotated while being withdrawn to clear the uterus of products. This suction process was repeated 3 additional times due to the quantity of material in the uterus. The sharp curette was introduced and advanced to the fundus to remove any remaining products. The suction curette was reintroduced one final time to ensure all products had been removed. The tenaculum was removed. Good hemostasis was noted. Instrument, sponge, and sharp counts were correct. Patient tolerated the procedure well and was taken to the recovery room in stable condition. Estimated Blood Loss 5 Drains No Packing No Pathology Yes (products of conception ) Complications No immediate complications Condition Stable Disposition PACU [facility] Billing Surgery - Charge Forward: Surgery Billing
[2025-05-06 07:56] VITALS: BP 111/69; PULSE 92; RESP 16; O2SAT 100
[2025-05-06 08:20] VITALS: BP 104/70; PULSE 70; RESP 16; O2SAT 100
[2025-05-06 08:50] VITALS: BP 100/63; PULSE 60; RESP 16
[2025-05-06] MEDS: DOXYCYCLINE HYCLATE 100 MG TABLET 200 MG PO (08:53)
== END 2025-05-06 09:02 | disposition home or self-care (01) ==
PROVIDERS: PCP Nurse Practitioner; Visit Provider Student in an Organized Health Care Education/Training Program
PROC: (CPT 59820; principal; 2025-05-06 07:30)
DX: O02.1 Missed abortion (principal); Z79.82 Long term (current) use of aspirin; Z98.890 Other specified postprocedural states; Z85.72 Personal history of non-Hodgkin lymphomas; Z92.21 Personal history of antineoplastic chemotherapy; Z86.718 Personal history of other venous thrombosis and embolism
CPT/HCPCS: 59820; 36415; 85014; 85018; 85461; 86850; 86900; 86901; 88305; A9270; J2250; J2704; J7120